=== PATIENT | male | born 1965 | race Caucasian/White ===

== ENCOUNTER → 2016-06-25 | Outpatient (CLI) | payer BC ==
[2016-06-25 08:35] LABS: Anion Gap 11 mmol/L; Blood Urea Nitrogen 13 mg/dL (9-20); Carbon Dioxide 25 mmol/L (22-30); Chloride 107 mmol/L (98-107); Non-African American GFR(MDRD) >60 (>60 ml/min/1.73 sqM); Potassium 4.2 mmol/L (3.5-5.1); Sodium 143 mmol/L (137-145)
[2016-06-25 08:39] LABS: Basophils # (A) 0.1 k/uL (0-0.2); Basophils % (A) 1 %; CH 30.4; CHCM 33.9; Eosinophils # (A) 0.3 k/uL (0-0.7); Eosinophils % (A) 3 %; HCT 45.4 % (39.0-53.0); HDW 2.56; HGB 15.2 gm/dL (13.0-17.5); Large Platelets Flag Slight; Luc # (Auto) 0.22; Luc % (Auto) 3; Lymphocytes # (A) 1.5 k/uL (1.0-4.8); Lymphocytes % (A) 18 %; MCH 30.1 pg (25.0-35.0); MCHC 33.4 g/dL (31.0-37.0); MCV 89.9 fL (80.0-100.0); Mean Platelet Volume 10.4; Monocytes # (A) 0.4 k/uL (0-1.0); Monocytes % (A) 5 %; Neutrophils # (A) 5.8 k/uL (1.3-7.7); Neutrophils % (A) 70 %; RBC 5.05 m/uL (4.30-5.90); RDW 12.6 % (11.5-15.5); WBC 8.2 k/uL (3.8-10.6); WBC (Perox) 8.23
== END | disposition home or self-care (01) ==
LOC: LABWHC1 07:55
PROVIDERS: ATTEND Urology
DX: N20.0 Calculus of kidney (principal)
CPT/HCPCS: 80051; 82565; 84520; 85025

== ENCOUNTER 2016-07-02 10:44 | Day surgery (SDC) | payer BC ==
[2016-06-27 14:09] VITALS: BMI 26.2
[~2016-07-02 10:44] MED LIST: LACTATED RINGERS 1,000 ML IV SCH
--- NOTE | 2016-07-02 10:44 | XR ---
EXAMINATION TYPE: XR KUB DATE OF EXAM: 07/02/2016 10:37 AM CLINICAL DATA: 51-year-old male preoperative for right kidney stone, lithotripsy, [facility] COMPARISON: None FINDINGS: There is a 1.1 cm calcification projecting at the lower pole right kidney. There are 4 indeterminate calcifications in the pelvis, 2 of which certainly represent phleboliths. IMPRESSION: A 1.1 cm right renal calculus.
[2016-07-02 11:06] VITALS: RESP 16; TEMP 97.6
[2016-07-02] MEDS ORDERED: LIDOCAINE 1% 20 ML VIAL (10MG/ML) FOR IV START INTRADERMA ONE (11:11)
[2016-07-02] MEDS ORDERED: PROPOFOL 10 MG/ML 20 ML VIAL IV ONE (12:37)
[2016-07-02] MEDS ORDERED: fentaNYL (PF) 50 MCG/ML 2 ML AMP ONE (12:37)
[2016-07-02] MEDS ORDERED: MIDAZOLAM 2 MG/2 ML VIAL ONE (12:37)
[2016-07-02 13:40] VITALS: BP 117/77; PULSE 54
--- NOTE | 2016-07-03 08:40 | OP ---
DATE OF SERVICE: 07/02/2016 SURGEON: STEPHANI GROVE MD PREOPERATIVE DIAGNOSIS: Right renal calculus. POSTOPERATIVE DIAGNOSIS: Right renal calculus. OPERATION: Extracorporeal sharper of lithotripsy of right renal calculus. ANESTHESIA: Intravenous sedation. HISTORY: The patient is a 51-year-old male who underwent ESWL treatment of a calculus in the right lower pole in 2014 but the calculus did not fragment. He continues to have a 10 x 11 mm calculus in the lower pole of the right kidney. Treatment options were reviewed with Dr. Preston and the patient has elected to proceed with repeat ESWL. PROCEDURE: The patient is taken the operating suite where adequate intravenous sedation was given. Patient was placed in the supine position on the fluoroscopy table. The calculus in the lower pole of the right kidney was localized using biplanar fluoroscopy. Lithotripsy was performed using the Dornier compact delta unit. Patient received 2500 shocks at level 5. A 2 minute break occurred after 200 shocks. There appeared to be fragmentation of the calculus. Anesthesia was reversed and the patient was returned to the recovery room, awake and in satisfactory condition. He will be seen back by Dr. Preston on 07/10 at which time a follow-up KUB will be obtained. BRO
== END 2016-07-02 14:09 | disposition home or self-care (01) ==
LOC: ORWHC2ENDO 10:44
PROVIDERS: ATTEND Urology
DX: N20.0 Calculus of kidney (principal); F17.200 Nicotine dependence, unspecified, uncomplicated
CPT/HCPCS: 74000; 50590; J2250; J3010; J2704; 99153

== ENCOUNTER → 2016-07-10 | Outpatient (CLI) | payer BC ==
--- NOTE | 2016-07-10 11:22 | XR ---
Abdomen HISTORY: Right renal calculus Frontal view of the abdomen correlated to prior abdomen June There is been interval fragmentation of the lower pole calculus involving the right kidney. Multiple small fragments are present. Pelvic calcifications show a similar appearance. IMPRESSION: Interval lithotripsy.
== END ==
LOC: RADXRMAIN 10:37
PROVIDERS: ATTEND Urology
DX: N20.0 Calculus of kidney (principal); Z98.890 Other specified postprocedural states
CPT/HCPCS: 74000

== ENCOUNTER → 2022-09-19 | Outpatient (CLI) | payer BC ==
--- NOTE | 2022-09-19 12:20 | CTL ---
EXAMINATION TYPE: CT Low Dose Lung DATE OF EXAM ORDERED: 09/19/2022 HISTORY: Personal tobacco use. Lung cancer screening CT DLP: [address] CTDI: 2.8 mGy Automated exposure control for dose reduction was used. SCREENING VISIT: Initial COMPARISON: None TECHNIQUE: Low dose computed tomography scan was performed through the chest at 1 mm thick sections a nd reconstructed images in the coronal plane at [address] DIAGNOSTIC QUALITY: Satisfactory FINDINGS: LUNG NODULES: Present, detailed below: 1. There is a 0.4 cm nodularity in the periphery of the right mid lung. Series 3 image 139. 2. There is a 0.3 cm nodule in the periphery of the anterolateral right mid lung. Series 3 image 167. 3. There is an area of pneumonitis and a possible pneumatocele in the superior segment right lower lo be. Series 3 image 136. LUNGS: COPD: Severity: None Fibrosis: Severity: None Lymph nodes: None Other findings: None RIGHT PLEURAL SPACE: Effusion: None Calcification: None Thickening: None Pneumothorax: None LEFT PLEURAL SPACE: Effusion: None Calcification: None Thickening: None Pneumothorax: None HEART: Heart Size: Normal Coronary calcification: Mild Pericardial effusion: Normal OTHER FINDINGS: Upper abdomen: Normal Bony thorax: Normal Supraclavicular region: Normal Other: Ascending thoracic aorta at the level the main pulmonary artery measures 2.9 cm. The main pul monary artery at the bifurcation measures 1.8 cm. IMPRESSION: Small benign-appearing right lung nodules FOLLOW UP CT CHEST RECOMMENDATION: Follow up low-dose CT chest [address] LUNG RAD: Lung-Rad 2 Benign Appearance or Behavior
== END | disposition home or self-care (01) ==
LOC: RADCTMAIN 08:21
PROVIDERS: ATTEND Family Medicine
DX: Z12.2 Encounter for screening for malignant neoplasm of respiratory organs (principal); R91.8 Other nonspecific abnormal finding of lung field; F17.210 Nicotine dependence, cigarettes, uncomplicated
CPT/HCPCS: 71271